=== PATIENT | male | born 1930 | race Caucasian/White ===

== ENCOUNTER 2017-04-12 20:44 | Emergency (ER) | payer MEDICARE, OTHER ==
[~2017-04-12] VITALS: Ht 180.3 cm; Wt 83.9 kg
[2017-04-12] MEDS ORDERED: PROTONIX 20 MG20 M1 PO (20:52)
[2017-04-12] MEDS ORDERED: CARVEDILOL3.125 MG PO (20:52)
[2017-04-12] MEDS ORDERED: IRON325 PO (20:52)
[2017-04-12] MEDS ORDERED: LASIX 20 MG TAB20 MG PO (20:52)
[2017-04-12] MEDS ORDERED: ELIQUIS5 MG PO (20:52)
[2017-04-12] MEDS ORDERED: MIRALAX17 GM PO (20:52)
[2017-04-12] MEDS ORDERED: LISINOPRIL10 MG PO (20:53)
[2017-04-12] MEDS ORDERED: VITAMIN D1000 UNI1 PO (20:53)
[2017-04-12] MEDS ORDERED: PRAVASTATIN SOD20 MG PO (20:53)
[2017-04-12] MEDS ORDERED: POTASSIUM20 PO (20:53)
[2017-04-12] MEDS ORDERED: FLOMAX0.4 MG PO (20:53)
[2017-04-12 21:16] LABS: ABSOLUTE BASOPHILS 0.1 thou/uL (0.0-0.2); ABSOLUTE EOSINOPHILS 0.2 thou/uL (0.0-0.7); ABSOLUTE LYMPHOCYTES 2.3 thou/uL (0.8-5.3); ABSOLUTE MONOCYTES 0.6 thou/uL (0.0-1.2); BASOPHILS 1.1 %; EOSINOPHILS 2.7 %; HEMATOCRIT 42.1 % (42.0-52.0); HEMOGLOBIN 14.3 gm/dL (14.0-18.0); LYMPHOCYTES 37.7 %; MCH 31.8 pg (26.0-34.0); MCHC 33.9 g/dL (28.0-37.0); MCV 93.9 fL (80.0-100.0); MONOCYTES 9.6 %; MPV 8.9 fl. (7.2-11.1); NUCLEATED RBCS 0 /100WBC; PLATELET COUNT* 156 thou/uL (150-400); POLYS 48.9 %; RBC 4.49 mil/uL (4.50-6.00); RDW-CV 14.1 % (10.5-14.5); WBC 6.2 thou/uL (4.0-11.0)
[2017-04-12 21:39] LABS: CALCIUM 8.8 mg/dL (8.5-10.1); CREATININE 1.4 mg/dL (0.6-1.3); POTASSIUM 3.7 mmol/L (3.5-5.1)
[2017-04-12 21:44] LABS: ALBUMIN 3.4 g/dL (3.4-5.0); TOTAL BILIRUBIN 0.3 mg/dL (<0.1-1.0); TOTAL PROTEIN 6.7 g/dL (6.4-8.2)
[2017-04-12 22:06] LABS: APTT 27.9 Seconds (25.0-31.3); INR 1.1; PROTIME 11.1 Seconds (9.20-11.50)
[2017-04-12 22:58] VITALS: BP 136/69
--- NOTE | 2017-04-13 12:49 | EKG ---
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[id number] Requested By: Get Russo Order Number: [id number] MD: Laci Francis Measurements Intervals [place] Rate: 77 P: 50 NM: 173 QRS: 51 QRSD: 160 T: 2 QT: 466 QTc: 528 Interpretive Statements Sinus rhythm Multiple ventricular premature complexes Right bundle branch block No previous ECG available for comparison Electronically Signed On 04-13-2017 12:49:02 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
== END 2017-04-12 22:59 | disposition home or self-care (01) ==
LOC: M.ERS 20:44
PROVIDERS: Family Medicine
DX: T18.120A Food in esophagus causing compression of trachea, initial encounter (principal); I10 Essential (primary) hypertension; Z91.041 Radiographic dye allergy status; X58.XXXA Exposure to other specified factors, initial encounter; Y93.89 Activity, other specified; Y92.89 Other specified places as the place of occurrence of the external cause; Y99.8 Other external cause status